=== PATIENT | male | born 1980 | race Caucasian/White ===

== ENCOUNTER → 2024-05-01 | Outpatient (CLI) | payer OTHER, SELFPAY | END | disposition home or self-care (01) | LOC: PSN 07:09 | PROVIDERS: PCP Internal Medicine; Referring Provider Internal Medicine Cardiovascular Disease; Visit Provider Internal Medicine Cardiovascular Disease | DX: R00.2 Palpitations (principal) | CPT/HCPCS: 93225; 93226 ==

== ENCOUNTER → 2024-05-03 | Outpatient (CLI) | payer SELFPAY, OTHER ==
--- NOTE | 2024-05-03 13:54 | ECHOD_ITS ---
Reason For Study: Palpitations Procedure This was a 2D Doppler, Color Flow transthoracic echocardiogram. Exam performed in department. Left Ventricle Normal LV size. Left ventricular systolic function is normal. The left ventricular ejection fraction is 50 %. No regional wall motion abnormalities noted. Right Ventricle Normal RV size. Normal systolic function. Mitral Valve Posterior leaflet mitral valve prolapse. Mild-Moderate (1-2+) eccentric mitral valve insufficiency. Tricuspid Valve Normal tricuspid valve. Mild (1+) tricuspid valve insufficiency. Pulmonary artery systolic pressure is 28 mmHg. Pulmonic Valve The pulmonic valve is not well visualized. Great Vessels Normal aortic root. Pericardium/Pleural No pericardial effusion. MMode/2D Measurements & Calculations LVIDd: 5.2 cm IVSd: 1.1 cm Ao root diam: 3.0 cm LVIDs: 3.4 cm LVPWd: 0.79 cm LA dimension: 3.7 cm RVDd: 4.4 cm FS: 34.1 % LAV(MOD-bp): 50.7 ml SV(MOD-sp4): 66.1 ml LVAd ap4: 35.0 cm2 LAV(MOD-bp) Indexed: 23.3 ml/m2 LVLd ap4: 9.1 cm LAV(MOD-sp2): 57.5 ml EDV(MOD-sp4): 110.0 ml LAV(MOD-sp4): 42.6 ml EDV(sp4-el): 113.5 ml LVAs ap4: 20.6 cm2 LVLs ap4: 8.1 cm ESV(MOD-sp4): 43.9 ml ESV(sp4-el): 44.6 ml EF(MOD-sp4): 60.1 % EF(sp4-el): 60.7 % SV(sp4-el): 68.9 ml LA A4 area: 16.7 cm2 RA A4 area: 19.4 cm2 TAPSE: 1.9 cm Time Measurements MV dec time: 0.19 sec Doppler Measurements & Calculations MV E max roger: 59.6 cm/sec Lat Peak E' Roger: 10.5 cm/sec Med Peak E' Roger: 10.2 cm/sec MV A max roger: 51.9 cm/sec E/E' lat: 5.7 E/E' med: 5.9 MV E/A: 1.1 MV V2 max: 72.3 cm/sec MV P1/2t max roger: 72.8 cm/sec Ao V2 max: 117.1 cm/sec MV max P.1 mmHg MV P1/2t: 70.8 msec Ao max P.5 mmHg MV V2 mean: 39.9 cm/sec MV dec slope: 300.9 cm/sec2 Ao V2 mean: 82.0 cm/sec MV mean P.77 mmHg Ao mean P.1 mmHg MV V2 VTI: 21.8 cm MVA(P1/2t): 3.1 cm2 Ao V2 VTI: 23.0 cm AV (velocity ratio): 0.81 LV V1 max: 87.6 cm/sec MR max roger: 597.6 cm/sec PA V2 max: 105.6 cm/sec LV V1 max P.1 mmHg MR max P.8 mmHg PA max PG (full): 2.5 mmHg LV V1 mean P.7 mmHg PA V2 mean: 66.2 cm/sec LV V1 mean: 60.6 cm/sec PA mean PG (full): 1.0 mmHg LV V1 VTI: 18.7 cm TR max roger: 249.8 cm/sec TR max P.0 mmHg ECHO/Echo Complete Interpretation Summary Normal LV size. Left ventricular systolic function is normal. The left ventricular ejection fraction is 50 %. Posterior leaflet mitral valve prolapse. Mild-Moderate (1-2+) eccentric mitral valve insufficiency. Ordering Physician: Dusty Damon Referring Physician: Dusty Damon Performed By: Titus Maravilla RCS
== END | disposition home or self-care (01) ==
LOC: CVS 13:53
PROVIDERS: PCP Internal Medicine; Referring Provider Internal Medicine Cardiovascular Disease; Visit Provider Internal Medicine Cardiovascular Disease
DX: R00.2 Palpitations (principal); I49.9 Cardiac arrhythmia, unspecified
CPT/HCPCS: 93306